=== PATIENT | female | born 1965 | race Caucasian/White ===

== ENCOUNTER → 2017-04-15 12:34 | Outpatient (CLI) | payer BC ==
[2016-07-25 10:11] VITALS: BMI 34.9
[~2017-04-15 12:34] MED LIST: AMBIEN5 MG PO; ASPIRIN325 MG PO; CIPRO500 MG PO; GLUCOPHAGE500 MG PO; LIPITOR20 MG PO; LIPITOR40 MG PO; NORVASC5 MG PO; PHENAZOPYRIDIN200 MG PO; PROZAC20 MG PO; PROZAC40 MG PO; VICODIN 5/500 T1 TAB PO
== END | disposition home or self-care (01) ==
LOC: D.MAMMO 12:34
DX: Z12.31 Encounter for screening mammogram for malignant neoplasm of breast (principal)

== ENCOUNTER 2018-05-06 08:00 | Outpatient (CLI) | payer BC ==
[2016-07-25 10:11] VITALS: BMI 34.9
== END 2018-05-06 09:00 | disposition home or self-care (01) ==
LOC: D.MAMMO 08:00
DX: Z12.31 Encounter for screening mammogram for malignant neoplasm of breast (principal)

== ENCOUNTER 2020-02-04 08:00 | Outpatient (CLI) | payer BC ==
[2016-07-25 10:11] VITALS: BMI 34.9
== END 2020-02-04 15:27 | disposition home or self-care (01) ==
LOC: D.MAMMO 08:00
PROVIDERS: ATTEND Family Medicine
DX: Z12.31 Encounter for screening mammogram for malignant neoplasm of breast (principal)

== ENCOUNTER → 2020-11-06 13:04 | Outpatient (CLI) | payer BC ==
[2016-07-25 10:11] VITALS: BMI 34.9
[2020-11-06 13:48] LABS: BASOPHILS 0.3 % (0-2); EOSINOPHILS 2.6 % (0-7); HEMATOCRIT 37.3 % (36.0-48.0); IMMATURE GRANULOCYTES 0.3 % (0-5); LYMPHOCYTE ABS# 2.64 10x3/uL (1.18-3.74); LYMPHOCYTES 35.8 % (15-50); MCH 30.2 pg (26.0-34.0); MCHC 32.2 g/dL (31.0-37.0); MEAN PLATELET VOLUME 10.1 fL (7.4-10.4); MONOCYTES 7.3 % (2-11); NEUTROPHIL ABS# 3.96 10x3/uL (1.56-6.13); NEUTROPHILS 53.7 % (40-80); RBC 3.97 10x6/uL (4.00-5.40); RDW 13.5 % (11.5-14.5); WBC 7.4 10x3/uL (4.8-10.8)
[2020-11-06 13:52] LABS: PLATELET COUNT 393 10x3/uL (130-400)
[2020-11-07 07:15] LABS: IMMUNOGLOBULIN A 194 mg/dL (87-352); IMMUNOGLOBULIN G 820 mg/dL (586-1602); IMMUNOGLOBULIN M 79 mg/dL (26-217)
== END | disposition home or self-care (01) ==
LOC: D.CT 13:04
PROVIDERS: ATTEND Internal Medicine Pulmonary Disease
DX: J32.9 Chronic sinusitis, unspecified (principal); J45.991 Cough variant asthma

== ENCOUNTER → 2020-11-09 11:42 | Outpatient (CLI) | payer BC ==
[2016-07-25 10:11] VITALS: BMI 34.9
== END | disposition home or self-care (01) ==
LOC: D.RT 11:30
PROVIDERS: ATTEND Internal Medicine Pulmonary Disease
DX: J45.991 Cough variant asthma (principal); Z11.52 Encounter for screening for COVID-19

== ENCOUNTER 2020-12-08 06:55 | Day surgery (SDC) | payer BC ==
[2020-12-07 08:45] LABS: BASOPHILS 0.2 % (0-2); EOSINOPHILS 2.8 % (0-7); HEMATOCRIT 38.2 % (36.0-48.0); HEMOGLOBIN 12.2 g/dL (12-16); IMMATURE GRANULOCYTES 0.2 % (0-5); LYMPHOCYTE ABS# 1.97 10x3/uL (1.18-3.74); LYMPHOCYTES 39.4 % (15-50); MCHC 31.9 g/dL (31.0-37.0); MCV 93.9 fL (80.0-100.0); MEAN PLATELET VOLUME 10.3 fL (7.4-10.4); MONOCYTES 10.8 % (2-11); NEUTROPHIL ABS# 2.33 10x3/uL (1.56-6.13); NEUTROPHILS 46.6 % (40-80); PLATELET COUNT 345 10x3/uL (130-400); RBC 4.07 10x6/uL (4.00-5.40); RDW 13.1 % (11.5-14.5)
[2020-12-07 08:51] LABS: ANION GAP 10.6 mmol/L (8-16); CALCIUM 8.9 mg/dL (8.5-10.1); CARBON DIOXIDE 30.5 mmol/L (21.0-32.0); CREATININE - SERUM 0.9 mg/dL (0.6-1.3); POTASSIUM - SERUM 4.1 mmol/L (3.5-5.1)
[~2020-12-08] VITALS: Ht 165.1 cm; Wt 99.8 kg
[~2020-12-08 06:55] MED LIST changes: +ALBUTEROL SULF8.5 GM INH; +AZELASTINE137 MCG/0. NASAL; +BREO ELLIPTA 11 EACH INH; +COREG12.5 MG PO; +COZAAR25 MG PO; +FLUTICASONE PRO16 GM NASAL; +SINGULAIR10 MG PO; +TESSALON PERLE100 MG PO
[2020-12-08 08:08] VITALS: BP 127/64; Ht 165.1 cm; Wt 99.8 kg
--- NOTE | 2020-12-08 10:54 | HP ---
PATIENT: JENNI SARGENT [facility] MEDICAL RECORD: [id number] ACCOUNT: [id number] LOCATION:[place] : 61 ADMISSION DATE: 12/08/20 PCP: MARILYNN CONNELLY MD HISTORY AND PHYSICAL EXAMINATION HISTORY OF PRESENT ILLNESS: Ms. Sargent is 55. She has had a bilateral severe chronic pansinusitis, refractory to medical management. Cultures have not been helpful. She has been on long course of antibiotics. She has been admitted for bilateral sinus surgery. PAST MEDICAL HISTORY: Includes hypertension, CVA. PAST SURGICAL HISTORY: Includes tubal ligation, heart catheterization in 2010, bladder biopsy in 2015. CURRENT MEDICATIONS: Include Mucinex, Astelin, fluticasone, Tessalon Perles, carvedilol, Singulair, losartan, Ambien, atorvastatin, amlodipine. ALLERGIES: No known drug allergies. PHYSICAL EXAMINATION: GENERAL: Healthy-appearing, developmentally normal. FACE: Normal, symmetric, no lesions. EYES: Sclerae and conjunctivae are normal. EARS: Canals and TMs are normal. NOSE: Bilateral diffuse congestion. No drainage. OROPHARYNX: Tongue protrudes in midline. Pharynx is normal. No postnasal drainage. NECK: No masses, no adenopathy. CHEST: Clear. CARDIOVASCULAR: Regular rate and rhythm, no murmur. EXTREMITIES: No clubbing, cyanosis or edema. DIAGNOSTIC DATA: Nasal endoscopy; no visible polyps, no visible drainage. CT shows opacification of the maxillary sinuses, ethmoid, frontal sinuses part of the sphenoid bilaterally, not much air. IMPRESSION: Bilateral chronic pansinusitis. PLAN: Bilateral middle meatal antrostomy, bilateral ethmoidectomy, sphenoidotomy, frontal sinusotomy and bilateral inferior turbinate reduction. TRANSINT:[id number] Voice Confirmation ID: [id number] DOCUMENT ID: [id number] ANN CASEY MD at 1054 CC: [id number] DICTATION DATE: 12/07/20851 SKEINS YARN EXAMINER: 12/07/20 0948 [facility] [address] [id number]
--- NOTE | 2020-12-08 13:05 | NUR ---
DISCHARGE INSTRUCITONS REVIEWED WITH PT AND COPY PROVIDED. ORIGINAL RX FOR NORCO AND CIPRO GIVEN TO PT. PT VOICED UNDERSTANDING OF ALL. 1400- IV DC'D WITH CATH TIP INTACT. PT GETTING DRESSED FOR DISCHARGE HOME. PT ASKED THIS NURSE ABOUT HER CPAP, WHETHER SHE SHOULD WEAR IT TONIGHT OR NOT. ASKED IF SHE HAS FULL FACE MASK OR NASAL PRONGS AND PT SAID FULL FACE MASK. PLACED A CALL TO DR CASEY'S OFFICE GOT ANSWERING SERVICE, L/M STATING WHAT WAS NEEDED. 1409- DISCHARGED VIA W/C, ACCOMPANIED BY RAEANN LOPEZ, TO MERGED WITH [facility] WITH FRIEND DRIVING. ALL BELONGINGS WITH PT. 1425- DR CASEY CALLED BACK AND SPOKE WITH RAEANN CAMPOS. PT NOT TO WEAR CPAP FOR TONIGHT ONLY. RAEANN CAMPOS THEN CALLED PT AND NOTIFIED HER OF THIS. 1430-
--- NOTE | 2020-12-11 09:28 | OP ---
PATIENT NAME: JENNI SARGENT MEDICAL RECORD: [id number] :61 LOCATION:[facility] ADMISSION DATE: SURGEON: ANN SMITH MD DATE OF OPERATION: 12/08/2020 PREOPERATIVE DIAGNOSIS: Chronic bilateral pansinusitis. POSTOPERATIVE DIAGNOSIS: Chronic bilateral pansinusitis. PROCEDURE: Bilateral endoscopic middle meatal antrostomy, bilateral endoscopic ethmoidectomy, bilateral endoscopic sphenoidotomy, bilateral frontal sinusotomy, bilateral inferior turbinate reduction. SURGEON: Ann Smith MD ANESTHESIA: General orotracheal. BLOOD LOSS: 5 mL. SPECIMENS: Cultures from right and left maxillary sinuses. COMPLICATIONS: None. NASAL PACKING: None. DISPOSITION: Recovery, stable. FINDINGS: Purulent drainage from nearly all of the sinuses and polypoid mucosal edema changes, but no actual polyps. DESCRIPTION OF PROCEDURE: She was brought to the operating room and placed in supine position, sedated and intubated by anesthesia. The table was turned 90 degrees. Head drape was applied. She was positioned for sinus surgery. Both sides of the nose had been decongested with Afrin preoperatively. Using a headlight and nasal speculum, both sides of nose were examined. The inferior turbinate, uncinate root of the middle turbinate were injected bilaterally with a less than 1.5 cc of 1% lidocaine, 1:100,000 epinephrine and Afrin pledgets were placed in each side in the middle meatus, nasal vault and along the inferior turbinate on both sides. The right side was addressed first. All Afrin pledgets were removed. The inferior turbinate was outfractured with a Coleman elevator. Middle turbinate was lateralized with a freer and then the frontal sinus duct was visualized. There were polypoid changes around the sphenoid ostia. It was carefully inspected, got opened that up, got a 7 suction in the sinus, irrigated with saline. There was some purulence in there. With upbiting forceps, took down some of the mucosal changes around there, but really did not have to open the bony ostia, it was pretty nice already. The same was done on the left side and again the similar findings mucosal edema occluding the sinus, but took down some of that, easily got a 7 suction in there, with extra room, suctioned out the sinus and irrigated it with saline as well. Both of those were cleaned and a nice ostia. Then, the middle turbinate on the right side was medialized and there was purulence under there. A curved large olive tip suction was then inserted into the maxillary sinus and Luki trap was used to evacuate that sinus and send that for culture. Microdebrider was used to take down the redundant mucosal edema around that sinus and then the ethmoid cavity was entered inferomedially and took down the ethmoids very easily, took down the OPERATIVE REPORT [id number] JENNI SARGENT WILLIAMS ethmoids from anterior to posterior. Really cleaned that up nicely, took down the bone fragments with a straight pediatric forceps, then used to really thin long curved olive tip suction, inserted into the frontal duct and irrigated it with saline. Then Afrin pledget was placed in the ethmoid cavity. Left side was then addressed. All Afrin pledgets had already been removed when I looked in the sphenoid sinus. Then, I medialized that middle turbinate and again large olive tip suctioned into the maxillary sinus and evacuated the contents into a Luki trap. Took microdebrider, took down, opened up that sinus nicely to about a centimeter in size. Good opening there I could see in that sinus. Some thick mucus and purulence was draining and then did enter the ethmoid cavity inferomedially, took the ethmoids down from anterior to posteriorly. Not much bleeding there. Took down the bone fragments with a pediatric up and straight biting forceps and then inserted the long curved olive tip suction into that frontal duct all the way up into the frontal sinus nice and easily, irrigated that sinus with saline, did not really get much purulence from the frontal sinuses, just pretty clear saline returning from the nose, but the maxillary sinus and ethmoids were full of purulence as were the sphenoids. Once that was done, Afrin pledget was placed in the left ethmoid cavity. I then took down the inferior redundant portions of the inferior turbinates. Suction cautery to stop any bleeding. I then outfractured both inferior turbinates again, then irrigated maxillary and ethmoid sinuses and the sphenoid sinus again copiously repeatedly with a 20-60 cc saline syringes and then put some mupirocin ointment in the maxillary sinuses and the ethmoid cavities. There really was not too much bleeding. She was awakened, extubated, and transported to recovery in good condition. No complications. TRANSINT:[id number] Voice Confirmation ID: [id number] DOCUMENT ID: [id number] ANN SMITH MD at 0928 CC: [id number] DICTATION DATE: 12/08/20 1221 CLINICAL DOCUMENTATION CLERK: 12/08/[address] [facility] [place] 12/08/20 [place] [id number] [place] [id number]
== END 2020-12-08 14:09 | disposition home or self-care (01) ==
LOC: D.OPS 06:55
PROVIDERS: Anesthesiology; ATTEND Otolaryngology
DX: J32.4 Chronic pansinusitis (principal); I10 Essential (primary) hypertension; Z86.73 Personal history of transient ischemic attack (TIA), and cerebral infarction without residual deficits; Z86.79 Personal history of other diseases of the circulatory system